=== PATIENT | female | born 1970 | race American Indian/Alaskan Native ===

== ENCOUNTER 2018-09-12 16:33 | Outpatient (CLI) | payer OTHER ==
--- NOTE | 2018-09-12 17:10 | Cat Scan Report ---
PROCEDURE: CT HEAD/BRAIN WO CON TECHNIQUE: Computerized tomography of the head was performed without contrast material. CT DOSE LENGTH PRODUCT: 927.6 mGycm HISTORY: R/O INTERCRANIAL HEAD INJURY trauma. Pain. COMPARISONS: None . FINDINGS: Brain: Brain density appears normal. No evidence of intracranial hemorrhage. No parenchymal hemorr cheryl, mass lesions or mass effect are seen. No abnormal extra-axial fluid collects or masses are see n. Ventricles: Ventricles are normal size and are midline. Bone Windows: No evidence of skull fracture. Paranasal sinuses: Minimal mucosal thickening in a few of the ethmoid air cells and left side of the sphenoid sinus. Visualized paranasal sinuses otherwise are clear. Mastoid air cells: Clear. IMPRESSION: Negative unenhanced CT scan of the brain. No evidence of intracranial hemorrhage or skull fracture. Minimal paranasal sinus disease as described. This document is electronically signed by Lalit Zamudio MD., September 12 2018 05:08:23 PM ET
== END 2018-09-12 16:34 | disposition home or self-care (01) ==
LOC: CT 16:33
PROVIDERS: ATTEND Preventive Medicine Preventive Medicine/Occupational Environmental Medicine
DX: J32.0 Chronic maxillary sinusitis (principal)
CPT/HCPCS: 70450